=== PATIENT | male | born 1975 | race African-American/Black ===

== ENCOUNTER 2017-02-26 14:00 | Inpatient (IN) ==
[2017-02-26 14:34] LABS: Basophils % 0.1 % (0.0-0.8); Eosinophils # 0.1 10*3/uL (0.0-0.87); Hemoglobin 13.3 GM/DL (14.0-18.0); Immature Granulocytes % 0.1 %; Immature Granulocytes Absolute 0.01 #; Lymphocytes # 2.1 10*3/uL (1.4-4.0); Lymphocytes % 30.8 % (21.2-54.2); Mean Corpuscular HGB Conc 34.1 GM/DL (32-36); Mean Corpuscular Hemoglobin 32 PG (27-34); Mean Corpuscular Volume 93.1 FL (87-102); Mean Platelet Volume 10.8 FL (9.6-12.0); Monocytes # 0.3 10*3/uL (0.11-0.8); Neutrophils # 4.3 10*3/uL (1.4-7.4); Platelet Count 274 T/CUMM (130-400); Red Blood Count 4.19 MC/CUMM (3.8-5.5); Red Cell Distribution Width 13.9 % (9.3-17.3); White Blood Count 6.7 T/CUMM (4-12)
[2017-02-26] MEDS ORDERED: LABETALOL 20 MG/4 ML SYRINGE IV STA (14:37)
[2017-02-26] MEDS ORDERED: LABETALOL 20 MG/4 ML SYRINGE IV ONE (14:39)
[2017-02-26 14:42] LABS: INR 1.1; PT Patient Result 11.6 SECS
[2017-02-26 14:58] LABS: Apearance,Urine CLEAR (Clear); Bacteria,Urine Occasional /HPF (Few); Bilirubin,Urine Negative (Negative); Blood, Urine Negative (Negative); Glucose,Urine (UA) Negative (Negative); Ketones,Urine Negative (Negative); Mucus,Urine Occasional /LPF (Occasional); Nitrite,Urine Negative (Negative); Protein,Urine 30 MG/DL; RBC,Urine <1 /HPF (0-4); Squamous Epithelial Cell,Urine Occasional /HPF (0-10); Urine Color Yellow (Yellow); Urine Specific Gravity 1.013 (1.001-1.035); Urine Urobilinogen < 2.0 EU/DL (0.2-1.0); WBC,Urine 1 /HPF (0-6)
[2017-02-26 14:58] LABS: Alanine Aminotransferase 39 U/L (16-61); Albumin 3.5 G/DL (3.4-5.0); Alkaline Phosphatase 83 U/L (45-117); Aspartate Amino Transferase 21 U/L (0-37); Blood Urea Nitrogen 6 MG/DL (7-18); Calcium 8.7 MG/DL (8.5-10.1); Glucose 151 MG/DL (74-106); Osmolality,Calculated 275.7 MOS/KG (273-304); Potassium 3.7 MMOL/L (3.5-5.1); Sodium 138 MMOL/L (136-145); Total Protein 8.6 G/DL (6.4-8.3)
[2017-02-26 15:03] LABS: Barbiturates Screen,Urine Negative (Negative); Benzodiazepines Screen,Urine Negative (Negative); Cannabinoid Screen,Urine Negative (Negative); Opiate Screen,Urine Positive (Negative); Phencyclidine Screen,Urine Negative (Negative)
[2017-02-26] MEDS ORDERED: LORazepam 2 MG/1 ML VIAL IV ONE (16:18)
[2017-02-26] MEDS: LABETALOL 20 MG/4 ML SYRINGE IV PRN ×2 (17:26→23:36)
[2017-02-26 18:20] LABS: Cholesterol 151 MG/DL (50-200); HDL Cholesterol 38 MG/DL (40-60); Risk Ratio 3.97; Triglycerides 84 MG/DL (2-150); Troponin I Only < 0.015 NG/ML (0.00-0.045); VLDL CHOLESTEROL 16.8 MG/DL
[2017-02-26] MEDS ORDERED: ACETAMINOPHEN 650 MG SUPP RECTAL PRN (20:07)
[2017-02-26] MEDS: ASPIRIN 300 MG SUPP RECTAL SCH (20:29)
[2017-02-26] MEDS: traZODone 50 MG TABLET PO SCH ×2 (20:30→22:05)
[2017-02-26] MEDS ORDERED: ENOXAPARIN 40 MG/0.4 ML SYRINGE SUBCUT SCH (21:00)
[2017-02-27] MEDS: ACETAMINOPHEN 325 MG TABLET PO PRN ×3 (02:26→15:36)
[2017-02-27 06:11] LABS: Basophils % 0.2 % (0.0-0.8); Eosinophils # 0.2 10*3/uL (0.0-0.87); Eosinophils % 1.7 % (0.00-10.9); Hematocrit 39.6 VOL% (42.0-52.0); Hemoglobin 13.4 GM/DL (14.0-18.0); Immature Granulocytes % 0.2 %; Immature Granulocytes Absolute 0.02 #; Lymphocytes # 3.2 10*3/uL (1.4-4.0); Lymphocytes % 34.3 % (21.2-54.2); Mean Corpuscular HGB Conc 33.8 GM/DL (32-36); Mean Corpuscular Hemoglobin 32 PG (27-34); Mean Corpuscular Volume 93.2 FL (87-102); Monocytes # 0.8 10*3/uL (0.11-0.8); Monocytes % 8.6 % (1.7-12.7); Neutrophils # 5.1 10*3/uL (1.4-7.4); Platelet Count 285 T/CUMM (130-400); Red Blood Count 4.25 MC/CUMM (3.8-5.5); Red Cell Distribution Width 14.1 % (9.3-17.3); White Blood Count 9.2 T/CUMM (4-12)
[2017-02-27] MEDS: LABETALOL 20 MG/4 ML SYRINGE IV PRN ×2 (09:08→15:35)
[2017-02-27] MEDS: cloNIDine 0.1 MG TABLET PO SCH ×2 (09:08→18:40)
[2017-02-27] MEDS: amLODIPine 10 MG TABLET PO SCH (09:09)
[2017-02-27] MEDS: ASPIRIN 300 MG SUPP RECTAL SCH ×2 (09:09→12:56)
[2017-02-27] MEDS: NIFEdipine 10 MG CAPSULE PO PRN ×3 (10:21→17:11)
[2017-02-27] MEDS ORDERED: guaiFENesin 200 MG/10 ML UDCUP PO PRN (19:30)
[2017-02-27] MEDS: traZODone 50 MG TABLET PO SCH (20:19)
[2017-02-27] MEDS: ATORVASTATIN 10 MG TABLET PO SCH (20:19)
[2017-02-28 06:39] LABS: Basophils % 0.1 % (0.0-0.8); Eosinophils # 0.1 10*3/uL (0.0-0.87); Eosinophils % 1.2 % (0.00-10.9); Hematocrit 39.1 VOL% (42.0-52.0); Hemoglobin 13.1 GM/DL (14.0-18.0); Immature Granulocytes % 0.4 %; Immature Granulocytes Absolute 0.04 #; Lymphocytes % 27.4 % (21.2-54.2); Mean Corpuscular HGB Conc 33.5 GM/DL (32-36); Mean Corpuscular Hemoglobin 31 PG (27-34); Mean Corpuscular Volume 93.1 FL (87-102); Mean Platelet Volume 10.6 FL (9.6-12.0); Monocytes # 1.2 10*3/uL (0.11-0.8); Monocytes % 11.2 % (1.7-12.7); Neutrophils # 6.5 10*3/uL (1.4-7.4); Neutrophils % 59.7 % (38.7-73.9); Platelet Count 303 T/CUMM (130-400); Red Cell Distribution Width 13.9 % (9.3-17.3); White Blood Count 10.8 T/CUMM (4-12)
[2017-02-28 07:17] LABS: Calcium 9.2 MG/DL (8.5-10.1)
[2017-02-28 07:18] LABS: Magnesium 2.1 MG/DL (1.8-2.4); Osmolality,Calculated 266.2 MOS/KG (273-304); Potassium 3.7 MMOL/L (3.5-5.1)
[2017-02-28] MEDS: cloNIDine 0.1 MG TABLET PO SCH ×3 (08:58→20:38)
[2017-02-28] MEDS: amLODIPine 10 MG TABLET PO SCH (08:59)
[2017-02-28] MEDS ORDERED: ONDANSETRON 4 MG/2 ML VIAL IM PRN (11:11)
[2017-02-28] MEDS: ASPIRIN 325 MG TABLET PO SCH (11:37)
[2017-02-28] MEDS: ONDANSETRON 4 MG/2 ML VIAL IV PRN ×2 (11:42→17:25)
[2017-02-28] MEDS ORDERED: BENZONATATE 100 MG CAPSULE PO PRN (19:48)
[2017-02-28] MEDS: ALBUTEROL 2.5 MG/3 ML NEB RESP TX PRN (19:50)
[2017-02-28] MEDS: ASPIRIN 300 MG SUPP RECTAL SCH (20:35)
[2017-02-28] MEDS: ATORVASTATIN 10 MG TABLET PO SCH (20:37)
[2017-02-28] MEDS: ACETAMINOPHEN 325 MG TABLET PO PRN (20:37)
[2017-02-28] MEDS: traZODone 50 MG TABLET PO SCH (20:37)
[2017-02-28] MEDS: LABETALOL 20 MG/4 ML SYRINGE IV PRN (21:30)
[2017-03-01] MEDS: ONDANSETRON 4 MG/2 ML VIAL IV PRN ×2 (03:29→11:46)
[2017-03-01] MEDS: amLODIPine 10 MG TABLET PO SCH (08:51)
[2017-03-01] MEDS: cloNIDine 0.1 MG TABLET PO SCH ×2 (08:51→20:49)
[2017-03-01] MEDS: ASPIRIN 325 MG TABLET PO SCH (08:51)
[2017-03-01] MEDS: NIFEdipine 10 MG CAPSULE PO PRN (14:35)
[2017-03-01] MEDS: ALBUTEROL 2.5 MG/3 ML NEB RESP TX PRN (19:08)
[2017-03-01] MEDS: ATORVASTATIN 10 MG TABLET PO SCH (20:49)
[2017-03-01] MEDS: traZODone 50 MG TABLET PO SCH (20:49)
[2017-03-02] MEDS: amLODIPine 10 MG TABLET PO SCH (08:53)
[2017-03-02] MEDS: cloNIDine 0.1 MG TABLET PO SCH ×2 (08:53→21:12)
[2017-03-02] MEDS: ASPIRIN 325 MG TABLET PO SCH (08:53)
[2017-03-02] MEDS: ALBUTEROL 2.5 MG/3 ML NEB RESP TX PRN (18:07)
[2017-03-02] MEDS: traZODone 50 MG TABLET PO SCH (21:11)
[2017-03-02] MEDS: ATORVASTATIN 10 MG TABLET PO SCH (21:11)
[2017-03-03 07:11] LABS: Basophils % 0.5 % (0.0-0.8); Eosinophils # 0.3 10*3/uL (0.0-0.87); Eosinophils % 4.5 % (0.00-10.9); Hematocrit 40.3 VOL% (42.0-52.0); Hemoglobin 13.6 GM/DL (14.0-18.0); Immature Granulocytes % 0.2 %; Immature Granulocytes Absolute 0.01 #; Lymphocytes # 1.8 10*3/uL (1.4-4.0); Lymphocytes % 30.1 % (21.2-54.2); Mean Corpuscular HGB Conc 33.7 GM/DL (32-36); Mean Corpuscular Hemoglobin 31 PG (27-34); Mean Corpuscular Volume 93.1 FL (87-102); Monocytes # 0.8 10*3/uL (0.11-0.8); Monocytes % 12.5 % (1.7-12.7); Neutrophils # 3.2 10*3/uL (1.4-7.4); Neutrophils % 52.2 % (38.7-73.9); Platelet Count 299 T/CUMM (130-400); Red Blood Count 4.33 MC/CUMM (3.8-5.5); Red Cell Distribution Width 13.2 % (9.3-17.3)
[2017-03-03 07:47] LABS: Magnesium 2.4 MG/DL (1.8-2.4); Osmolality,Calculated 267.1 MOS/KG (273-304); Potassium 3.9 MMOL/L (3.5-5.1)
[2017-03-03] MEDS: ASPIRIN 325 MG TABLET PO SCH (09:57)
[2017-03-03] MEDS: cloNIDine 0.1 MG TABLET PO SCH (09:57)
[2017-03-03] MEDS: amLODIPine 10 MG TABLET PO SCH (09:58)
[2017-03-03 13:50] VITALS: BP 134/95
== END 2017-03-03 15:20 | disposition home or self-care (01) | DRG 65 ==
LOC: EDSEX → EDBD → EDUNIT# → N.ED 14:00 → N.EDINP 14:52 → N.ICU 16:40 → N.2E 02-27 18:06
PROVIDERS: ADMIT Internal Medicine; ATTEND Internal Medicine

== ENCOUNTER 2018-08-12 11:11 | Inpatient (IN) ==
[2018-08-12] MEDS ORDERED: PROMETHAZINE 25 MG/1 ML VIAL IM PRN (11:45)
[2018-08-12] MEDS ORDERED: ONDANSETRON 4 MG/2 ML VIAL IV PRN (11:45)
[2018-08-12] MEDS ORDERED: LACTULOSE 20 GM/30 ML UDCUP PO PRN (11:45)
[2018-08-12] MEDS ORDERED: DICYCLOMINE 10 MG CAPSULE PO PRN (11:47)
[2018-08-12] MEDS ORDERED: cloNIDine 0.1 MG TABLET PO PRN (11:47)
[2018-08-12] MEDS ORDERED: rOPINIRole 1 MG TABLET PO PRN (11:47)
[2018-08-12] MEDS ORDERED: hydrOXYzine HCL 25 MG/1 ML VIAL IM PRN (11:47)
[2018-08-12] MEDS ORDERED: METHOCARBAMOL 750 MG TABLET PO PRN (11:47)
[2018-08-12] MEDS ORDERED: THIAMINE INJ 100 MG, FOLIC ACID INJ 1 MG, MULTIVITAMIN INJ 10 ML in SODIUM CHLORIDE 0.9... IV ONE (11:47)
[2018-08-12 13:04] LABS: Basophils % 0.3 % (0.0-0.8); Eosinophils # 0.2 10*3/uL (0.0-0.87); Eosinophils % 2.8 % (0.00-10.9); Hematocrit 40.8 VOL% (42.0-52.0); Immature Granulocytes % 0.1 %; Immature Granulocytes Absolute 0.01 #; Lymphocytes # 1.5 10*3/uL (1.4-4.0); Lymphocytes % 21.1 % (21.2-54.2); Mean Corpuscular HGB Conc 31.9 GM/DL (32-36); Mean Corpuscular Hemoglobin 30 PG (27-34); Mean Corpuscular Volume 94.2 FL (87-102); Mean Platelet Volume 9.9 FL (9.6-12.0); Monocytes # 0.4 10*3/uL (0.11-0.8); Monocytes % 5.8 % (1.7-12.7); Neutrophils # 4.8 10*3/uL (1.4-7.4); Neutrophils % 69.9 % (38.7-73.9); Platelet Count 291 T/CUMM (130-400); Red Blood Count 4.33 MC/CUMM (3.8-5.5); Red Cell Distribution Width 14.4 % (9.3-17.3); White Blood Count 6.9 T/CUMM (4-12)
[2018-08-12] MEDS ORDERED: ALBUTEROL 2.5 MG/3 ML NEB RESP TX PRN (13:05)
[2018-08-12 13:31] LABS: Albumin 3.6 G/DL (3.4-5.0); Bilirubin,Total 0.6 MG/DL (0.2-1.0); Calcium 8.8 MG/DL (8.5-10.1); Osmolality,Calculated 276.5 MOS/KG (273-304); Potassium 3.2 MMOL/L (3.5-5.1); Total Protein 9.1 G/DL (6.4-8.3)
[2018-08-12] MEDS: amLODIPine 10 MG TABLET PO SCH (13:58)
[2018-08-12] MEDS: BUPRENORPHINE SL TAB 2 MG TABLET SL SCH ×2 (13:58→19:30)
[2018-08-12] MEDS: ENOXAPARIN 40 MG/0.4 ML SYRINGE SUBCUT SCH (13:58)
[2018-08-12] MEDS: cloNIDine 0.1 MG TABLET PO SCH (13:58)
[2018-08-12] MEDS: LISINOPRIL 10 MG TABLET PO SCH (13:58)
[2018-08-12] MEDS: LACTATED RINGERS 1,000 ML IV SCH (13:59)
[2018-08-12 14:23] LABS: Apearance,Urine CLEAR (Clear); Bilirubin,Urine Negative (Negative); Blood, Urine Negative (Negative); Glucose,Urine (UA) Negative (Negative); Ketones,Urine Negative (Negative); Mucus,Urine Occasional /LPF (Occasional); Nitrite,Urine Negative (Negative); Protein,Urine Negative; RBC,Urine 1 /HPF (0-4); Squamous Epithelial Cell,Urine Occasional /HPF (0-10); Urine Color Yellow (Yellow); Urine Specific Gravity 1.016 (1.001-1.035); WBC,Urine 2 /HPF (0-6)
[2018-08-12 14:27] LABS: Barbiturates Screen,Urine Negative (Negative); Benzodiazepines Screen,Urine Negative (Negative); Cannabinoid Screen,Urine Negative (Negative); Opiate Screen,Urine Positive (Negative); Phencyclidine Screen,Urine Negative (Negative)
[2018-08-12] MEDS ORDERED: POTASSIUM CHLORIDE 20 MEQ TABLET PO ONE (14:37)
[2018-08-12] MEDS: hydrALAZINE 20 MG/1 ML VIAL IV PRN (15:18)
[2018-08-12] MEDS: ACETAMINOPHEN 325 MG TABLET PO PRN (19:30)
[2018-08-12] MEDS: HydrOXYzine PAMOATE 25 MG CAPSULE PO PRN (22:48)
[2018-08-13] MEDS: BUPRENORPHINE SL TAB 2 MG TABLET SL SCH ×3 (03:36→20:17)
[2018-08-13] MEDS: ACETAMINOPHEN 325 MG TABLET PO PRN ×2 (08:50→18:36)
[2018-08-13] MEDS: LISINOPRIL 10 MG TABLET PO SCH (08:50)
[2018-08-13] MEDS: PANTOPRAZOLE 40 MG TABLET PO SCH (08:50)
[2018-08-13] MEDS: amLODIPine 10 MG TABLET PO SCH (08:51)
[2018-08-13] MEDS: cloNIDine 0.1 MG TABLET PO SCH (08:51)
[2018-08-13] MEDS: ENOXAPARIN 40 MG/0.4 ML SYRINGE SUBCUT SCH (14:11)
[2018-08-13] MEDS: LACTATED RINGERS 1,000 ML IV SCH (14:14)
[2018-08-13] MEDS: hydrALAZINE 20 MG/1 ML VIAL IV PRN (19:21)
[2018-08-13] MEDS: HydrOXYzine PAMOATE 25 MG CAPSULE PO PRN (22:05)
[2018-08-14] MEDS: BUPRENORPHINE SL TAB 2 MG TABLET SL SCH ×2 (04:23→13:06)
[2018-08-14] MEDS: PANTOPRAZOLE 40 MG TABLET PO SCH (09:07)
[2018-08-14] MEDS: amLODIPine 10 MG TABLET PO SCH (09:07)
[2018-08-14] MEDS: cloNIDine 0.1 MG TABLET PO SCH (09:07)
[2018-08-14] MEDS: LISINOPRIL 10 MG TABLET PO SCH (09:07)
[2018-08-14] MEDS: ENOXAPARIN 40 MG/0.4 ML SYRINGE SUBCUT SCH (13:07)
[2018-08-14] MEDS: ACETAMINOPHEN 325 MG TABLET PO PRN (13:10)
[2018-08-14] MEDS: HydrOXYzine PAMOATE 25 MG CAPSULE PO PRN (23:12)
[2018-08-15] MEDS: ACETAMINOPHEN 325 MG TABLET PO PRN ×4 (00:34→19:16)
[2018-08-15] MEDS: hydrALAZINE 20 MG/1 ML VIAL IV PRN (00:35)
[2018-08-15] MEDS: BUPRENORPHINE SL TAB 2 MG TABLET SL SCH (00:35)
[2018-08-15] MEDS: LISINOPRIL 10 MG TABLET PO SCH ×2 (09:27→20:38)
[2018-08-15] MEDS: amLODIPine 10 MG TABLET PO SCH (09:27)
[2018-08-15] MEDS: PANTOPRAZOLE 40 MG TABLET PO SCH (09:28)
[2018-08-15] MEDS: cloNIDine 0.1 MG TABLET PO SCH ×3 (09:28→20:37)
[2018-08-15] MEDS: ENOXAPARIN 40 MG/0.4 ML SYRINGE SUBCUT SCH (13:57)
[2018-08-15] MEDS: HydrOXYzine PAMOATE 25 MG CAPSULE PO PRN (23:02)
[2018-08-16 05:26] LABS: Osmolality,Calculated 275.7 MOS/KG (273-304); Potassium 3.7 MMOL/L (3.5-5.1)
[2018-08-16 08:44] VITALS: BP 115/81
[2018-08-16] MEDS: LISINOPRIL 10 MG TABLET PO SCH (09:11)
[2018-08-16] MEDS: amLODIPine 10 MG TABLET PO SCH (09:12)
[2018-08-16] MEDS: cloNIDine 0.1 MG TABLET PO SCH ×2 (09:14→15:20)
[2018-08-16] MEDS: PANTOPRAZOLE 40 MG TABLET PO SCH (09:14)
[2018-08-16] MEDS: ENOXAPARIN 40 MG/0.4 ML SYRINGE SUBCUT SCH (13:53)
== END 2018-08-16 15:00 | disposition home or self-care (01) | DRG 772 ==
LOC: N.4E 12:27 → SUATTDRO 12:27
PROVIDERS: ADMIT Internal Medicine; ATTEND Internal Medicine

== ENCOUNTER 2018-09-16 11:32 | Inpatient (IN) ==
[2018-09-16] MEDS ORDERED: hydrOXYzine HCL 25 MG/1 ML VIAL IM PRN (12:32)
[2018-09-16] MEDS ORDERED: HydrOXYzine PAMOATE 25 MG CAPSULE PO PRN (12:32)
[2018-09-16] MEDS ORDERED: METHOCARBAMOL 750 MG TABLET PO PRN (12:32)
[2018-09-16] MEDS ORDERED: cloNIDine 0.1 MG TABLET PO PRN (12:32)
[2018-09-16] MEDS ORDERED: rOPINIRole 1 MG TABLET PO PRN (12:32)
[2018-09-16] MEDS ORDERED: chlordiazePOXIDE 25 MG CAPSULE PO SCH (13:00)
[2018-09-16] MEDS: chlordiazePOXIDE 25 MG CAPSULE PO SCH ×2 (13:13→19:07)
[2018-09-16] MEDS: BUPRENORPHINE SL TAB 2 MG TABLET SL SCH ×2 (13:13→20:18)
[2018-09-16] MEDS: SODIUM CHLORIDE 0.9% 1,000 ML IV SCH (13:14)
[2018-09-16] MEDS: cloNIDine 0.1 MG TABLET PO SCH ×2 (16:07→20:19)
[2018-09-16] MEDS: ALBUTEROL/IPRATROPIUM 3 ML NEB RESP TX PRN (20:24)
[2018-09-17] MEDS: chlordiazePOXIDE 25 MG CAPSULE PO SCH ×4 (01:12→21:20)
[2018-09-17] MEDS: BUPRENORPHINE SL TAB 2 MG TABLET SL SCH ×3 (04:54→21:20)
[2018-09-17] MEDS: SODIUM CHLORIDE 0.9% 1,000 ML IV SCH ×2 (04:55→19:04)
[2018-09-17 05:16] LABS: Basophils % 0.8 % (0.0-0.8); Eosinophils # 0.3 10*3/uL (0.0-0.87); Eosinophils % 5.8 % (0.00-10.9); Hematocrit 35.3 VOL% (42.0-52.0); Hemoglobin 11.1 GM/DL (14.0-18.0); Immature Granulocytes % 0.2 %; Immature Granulocytes Absolute 0.01 #; Lymphocytes # 1.9 10*3/uL (1.4-4.0); Lymphocytes % 39.6 % (21.2-54.2); Mean Corpuscular HGB Conc 31.4 GM/DL (32-36); Mean Corpuscular Volume 94.9 FL (87-102); Mean Platelet Volume 10.1 FL (9.6-12.0); Monocytes % 13.3 % (1.7-12.7); Neutrophils % 40.3 % (38.7-73.9); Platelet Count 241 T/CUMM (130-400); Red Blood Count 3.72 MC/CUMM (3.8-5.5); Red Cell Distribution Width 14.7 % (9.3-17.3); White Blood Count 4.8 T/CUMM (4-12)
[2018-09-17 05:43] LABS: Albumin 3.2 G/DL (3.4-5.0); Bilirubin,Total 0.6 MG/DL (0.2-1.0); Calcium 8.5 MG/DL (8.5-10.1); Risk Ratio 3.45; Thyroid Stimulating Hormone 0.544 uIU/ml (0.358-3.74); VLDL CHOLESTEROL 23.4 MG/DL
[2018-09-17] MEDS: PANTOPRAZOLE 40 MG TABLET PO SCH (09:05)
[2018-09-17] MEDS: cloNIDine 0.1 MG TABLET PO SCH ×3 (09:05→21:20)
[2018-09-17] MEDS: amLODIPine 10 MG TABLET PO SCH (09:05)
[2018-09-17] MEDS: ALBUTEROL/IPRATROPIUM 3 ML NEB RESP TX PRN (10:26)
[2018-09-17] MEDS ORDERED: ACETAMINOPHEN 325 MG TABLET PO PRN (12:59)
[2018-09-17] MEDS: ONDANSETRON 4 MG/2 ML VIAL IV PRN ×2 (14:19→20:05)
[2018-09-17] MEDS ORDERED: POTASSIUM CHLORIDE 20 MEQ TABLET PO ONE (15:44)
[2018-09-18] MEDS: BUPRENORPHINE SL TAB 2 MG TABLET SL SCH ×2 (05:43→13:16)
[2018-09-18] MEDS: chlordiazePOXIDE 25 MG CAPSULE PO SCH ×3 (05:43→20:18)
[2018-09-18] MEDS: ONDANSETRON 4 MG/2 ML VIAL IV PRN ×2 (08:07→20:18)
[2018-09-18] MEDS: cloNIDine 0.1 MG TABLET PO SCH ×3 (08:07→20:20)
[2018-09-18] MEDS: amLODIPine 10 MG TABLET PO SCH (08:07)
[2018-09-18] MEDS: PANTOPRAZOLE 40 MG TABLET PO SCH (08:08)
[2018-09-18] MEDS: SODIUM CHLORIDE 0.9% 1,000 ML IV SCH ×2 (08:09→20:24)
[2018-09-18] MEDS: ALBUTEROL/IPRATROPIUM 3 ML NEB RESP TX PRN (19:43)
[2018-09-18] MEDS: DICYCLOMINE 10 MG CAPSULE PO PRN (20:18)
[2018-09-19] MEDS: BUPRENORPHINE SL TAB 2 MG TABLET SL SCH (01:49)
[2018-09-19] MEDS: chlordiazePOXIDE 25 MG CAPSULE PO SCH (05:08)
[2018-09-19] MEDS: cloNIDine 0.1 MG TABLET PO SCH ×3 (08:21→20:43)
[2018-09-19] MEDS: amLODIPine 10 MG TABLET PO SCH (08:21)
[2018-09-19] MEDS: PANTOPRAZOLE 40 MG TABLET PO SCH (08:21)
[2018-09-19] MEDS: ONDANSETRON 4 MG/2 ML VIAL IV PRN (08:26)
[2018-09-19] MEDS: DICYCLOMINE 10 MG CAPSULE PO PRN (08:27)
[2018-09-19] MEDS ORDERED: PROMETHAZINE INJ 25 MG in SODIUM CHLORIDE 0.9% 50 ML IV PRN (09:23)
[2018-09-19 10:18] LABS: Basophils % 0.1 % (0.0-0.8); Eosinophils # 0.3 10*3/uL (0.0-0.87); Eosinophils % 3.7 % (0.00-10.9); Hematocrit 37.1 VOL% (42.0-52.0); Hemoglobin 11.8 GM/DL (14.0-18.0); Immature Granulocytes % 0.1 %; Immature Granulocytes Absolute 0.01 #; Lymphocytes # 1.9 10*3/uL (1.4-4.0); Lymphocytes % 28.4 % (21.2-54.2); Mean Corpuscular HGB Conc 31.8 GM/DL (32-36); Mean Corpuscular Volume 93.9 FL (87-102); Mean Platelet Volume 10.3 FL (9.6-12.0); Monocytes % 10.9 % (1.7-12.7); Neutrophils % 56.8 % (38.7-73.9); Platelet Count 248 T/CUMM (130-400); Red Blood Count 3.95 MC/CUMM (3.8-5.5); Red Cell Distribution Width 14.8 % (9.3-17.3); White Blood Count 6.8 T/CUMM (4-12)
[2018-09-19] MEDS: SODIUM CHLORIDE 0.9% 1,000 ML IV SCH ×2 (10:36→11:22)
[2018-09-19 10:41] LABS: Calcium 8.4 MG/DL (8.5-10.1); Osmolality,Calculated 279.1 MOS/KG (273-304)
[2018-09-19] MEDS ORDERED: ENOXAPARIN 40 MG/0.4 ML SYRINGE SUBCUT SCH (14:00)
[2018-09-19] MEDS: CIPROFLOXACIN 0.3% OPH SOLN 2.5 ML BOTTLE BOTH EYES SCH ×3 (14:04→22:19)
[2018-09-19] MEDS ORDERED: MAGNESIUM HYDROXIDE SUSP 30 ML UDCUP PO PRN (18:06)
[2018-09-19] MEDS: ALBUTEROL/IPRATROPIUM 3 ML NEB RESP TX PRN (21:15)
[2018-09-20] MEDS: SODIUM CHLORIDE 0.9% 1,000 ML IV SCH (00:15)
[2018-09-20] MEDS: CIPROFLOXACIN 0.3% OPH SOLN 2.5 ML BOTTLE BOTH EYES SCH ×3 (03:33→09:06)
[2018-09-20 04:44] LABS: Eosinophils # 0.3 10*3/uL (0.0-0.87); Eosinophils % 6.9 % (0.00-10.9); Hematocrit 33.4 VOL% (42.0-52.0); Hemoglobin 10.7 GM/DL (14.0-18.0); Immature Granulocytes % 0.2 %; Immature Granulocytes Absolute 0.01 #; Lymphocytes # 1.7 10*3/uL (1.4-4.0); Lymphocytes % 35.9 % (21.2-54.2); Mean Corpuscular Volume 93.8 FL (87-102); Mean Platelet Volume 9.7 FL (9.6-12.0); Monocytes % 14.5 % (1.7-12.7); Neutrophils % 42.5 % (38.7-73.9); Platelet Count 227 T/CUMM (130-400); Red Blood Count 3.56 MC/CUMM (3.8-5.5); Red Cell Distribution Width 14.8 % (9.3-17.3); White Blood Count 4.6 T/CUMM (4-12)
[2018-09-20 05:02] LABS: Calcium 8.1 MG/DL (8.5-10.1)
[2018-09-20] MEDS: PANTOPRAZOLE 40 MG TABLET PO SCH (09:06)
[2018-09-20] MEDS: cloNIDine 0.1 MG TABLET PO SCH (09:06)
[2018-09-20] MEDS: amLODIPine 10 MG TABLET PO SCH (09:06)
[2018-09-20 12:12] VITALS: BP 121/92
== END 2018-09-20 14:22 | disposition home or self-care (01) | DRG 772 ==
LOC: N.4E 11:46
PROVIDERS: ADMIT Internal Medicine; ATTEND Internal Medicine

== ENCOUNTER 2018-10-20 14:35 | Inpatient (IN) ==
[2018-10-20] MEDS ORDERED: ONDANSETRON 4 MG/2 ML VIAL IV PRN (16:11)
[2018-10-20 17:51] LABS: Basophils % 0.6 % (0.0-0.8); Eosinophils # 0.6 10*3/uL (0.0-0.87); Hematocrit 41.7 VOL% (42.0-52.0); Hemoglobin 13.3 GM/DL (14.0-18.0); Immature Granulocytes % 0.2 %; Immature Granulocytes Absolute 0.01 #; Lymphocytes # 2.2 10*3/uL (1.4-4.0); Lymphocytes % 35.2 % (21.2-54.2); Mean Corpuscular HGB Conc 31.9 GM/DL (32-36); Mean Corpuscular Volume 92.3 FL (87-102); Mean Platelet Volume 10.5 FL (9.6-12.0); Monocytes % 11.1 % (1.7-12.7); Neutrophils % 43.9 % (38.7-73.9); Platelet Count 314 T/CUMM (130-400); Red Blood Count 4.52 MC/CUMM (3.8-5.5); Red Cell Distribution Width 14.3 % (9.3-17.3); White Blood Count 6.2 T/CUMM (4-12)
[2018-10-20] MEDS: chlordiazePOXIDE 25 MG CAPSULE PO SCH ×2 (17:58→21:30)
[2018-10-20] MEDS: SODIUM CHLORIDE 0.9% 1,000 ML IV SCH (17:58)
[2018-10-20 18:13] LABS: Calcium 8.9 MG/DL (8.5-10.1); Osmolality,Calculated 271.7 MOS/KG (273-304)
[2018-10-20] MEDS: HydrOXYzine PAMOATE 25 MG CAPSULE PO PRN (21:29)
[2018-10-20] MEDS: METHOCARBAMOL 750 MG TABLET PO PRN (21:29)
[2018-10-20] MEDS: cloNIDine 0.1 MG TABLET PO PRN (23:26)
[2018-10-21] MEDS: chlordiazePOXIDE 25 MG CAPSULE PO SCH (04:09)
[2018-10-21] MEDS: cloNIDine 0.1 MG TABLET PO PRN ×3 (06:04→16:55)
[2018-10-21] MEDS: SODIUM CHLORIDE 0.9% 1,000 ML IV SCH ×2 (09:18→21:58)
[2018-10-21] MEDS: ENOXAPARIN 40 MG/0.4 ML SYRINGE SUBCUT SCH (09:18)
[2018-10-21] MEDS: BUPRENORPHINE SL TAB 2 MG TABLET SL SCH ×2 (09:19→16:55)
[2018-10-21] MEDS: PANTOPRAZOLE 40 MG TABLET PO SCH (09:19)
[2018-10-21] MEDS: METHOCARBAMOL 750 MG TABLET PO PRN (09:19)
[2018-10-21 09:54] LABS: Risk Ratio 3.88; Thyroid Stimulating Hormone 0.398 uIU/ml (0.358-3.74); VLDL CHOLESTEROL 22.2 MG/DL
[2018-10-21 12:52] LABS: Apearance,Urine CLEAR (Clear); Bilirubin,Urine Negative (Negative); Blood, Urine Negative (Negative); Glucose,Urine (UA) Negative (Negative); Ketones,Urine Negative (Negative); Mucus,Urine Occasional /LPF (Occasional); Nitrite,Urine Negative (Negative); Protein,Urine Negative; RBC,Urine <1 /HPF (0-4); Urine Color Yellow (Yellow); Urine Specific Gravity 1.016 (1.001-1.035); Urine Urobilinogen < 2.0 EU/DL (0.2-1.0); WBC,Urine <1 /HPF (0-6)
[2018-10-21] MEDS: amLODIPine 10 MG TABLET PO SCH (14:50)
[2018-10-21] MEDS: ACETAMINOPHEN 325 MG TABLET PO PRN ×2 (16:57→20:50)
[2018-10-21] MEDS: ALBUTEROL 2.5 MG/3 ML NEB RESP TX PRN (17:45)
[2018-10-21] MEDS: HydrOXYzine PAMOATE 25 MG CAPSULE PO PRN (20:49)
[2018-10-22] MEDS: cloNIDine 0.1 MG TABLET PO PRN ×3 (00:06→23:32)
[2018-10-22] MEDS: ACETAMINOPHEN 325 MG TABLET PO PRN ×3 (00:32→19:52)
[2018-10-22] MEDS: BUPRENORPHINE SL TAB 2 MG TABLET SL SCH ×4 (00:32→23:32)
[2018-10-22] MEDS ORDERED: CLINDAMYCIN 300 MG CAPSULE PO ONE (09:00)
[2018-10-22] MEDS: ASPIRIN EC 81 MG TABLET PO SCH (09:40)
[2018-10-22] MEDS: PANTOPRAZOLE 40 MG TABLET PO SCH (09:41)
[2018-10-22] MEDS: amLODIPine 10 MG TABLET PO SCH (09:41)
[2018-10-22] MEDS: ENOXAPARIN 40 MG/0.4 ML SYRINGE SUBCUT SCH (09:41)
[2018-10-22] MEDS: CLINDAMYCIN 300 MG CAPSULE PO SCH ×3 (12:40→20:59)
[2018-10-22] MEDS: SODIUM CHLORIDE 0.9% 1,000 ML IV SCH (12:45)
[2018-10-22] MEDS: ALBUTEROL 2.5 MG/3 ML NEB RESP TX PRN (13:30)
[2018-10-22] MEDS: HydrOXYzine PAMOATE 25 MG CAPSULE PO PRN (20:58)
[2018-10-23 08:31] VITALS: BP 123/82
[2018-10-23] MEDS: amLODIPine 10 MG TABLET PO SCH (08:58)
[2018-10-23] MEDS: BUPRENORPHINE SL TAB 2 MG TABLET SL SCH (08:58)
[2018-10-23] MEDS: PANTOPRAZOLE 40 MG TABLET PO SCH (08:58)
[2018-10-23] MEDS: ASPIRIN EC 81 MG TABLET PO SCH (08:58)
[2018-10-23] MEDS: CLINDAMYCIN 300 MG CAPSULE PO SCH (08:58)
[2018-10-23] MEDS: ENOXAPARIN 40 MG/0.4 ML SYRINGE SUBCUT SCH (08:59)
== END 2018-10-23 09:56 | DRG 772 ==
LOC: N.4E 15:00
PROVIDERS: ADMIT Internal Medicine; ATTEND Internal Medicine

== ENCOUNTER 2019-06-21 18:26 | Observation (INO) ==
[2019-06-21] MEDS ORDERED: NITROGLYCERIN SL 0.4 MG TABLET SL PRN (19:01)
[2019-06-21] MEDS ORDERED: ASPIRIN 325 MG TABLET PO STA (19:01)
[2019-06-21 19:06] LABS: Basophils # 0.1 10*3/uL (0.0-0.2); Basophils % 0.9 % (0.0-0.8); Eosinophils # 0.6 10*3/uL (0.0-0.87); Eosinophils % 8.5 % (0.00-10.9); Hematocrit 44.9 VOL% (42.0-52.0); Hemoglobin 14.5 GM/DL (14.0-18.0); Immature Granulocytes % 0.1 %; Immature Granulocytes Absolute 0.01 #; Lymphocytes # 2.6 10*3/uL (1.4-4.0); Lymphocytes % 36.3 % (21.2-54.2); Mean Corpuscular HGB Conc 32.3 GM/DL (32-36); Mean Corpuscular Volume 91.8 FL (87-102); Mean Platelet Volume 9.6 FL (9.6-12.0); Monocytes % 13.2 % (1.7-12.7); Platelet Count 298 T/CUMM (130-400); Red Blood Count 4.89 MC/CUMM (3.8-5.5); Red Cell Distribution Width 13.1 % (9.3-17.3); White Blood Count 7.1 T/CUMM (4-12)
[2019-06-21 19:25] LABS: Calcium 9.4 MG/DL (8.5-10.1); Osmolality,Calculated 262.4 MOS/KG (273-304)
[2019-06-21] MEDS ORDERED: POTASSIUM CHLORIDE 20 MEQ TABLET PO STA (19:29)
[2019-06-21] MEDS ORDERED: ALBUTEROL/IPRATROPIUM 3 ML NEB RESP TX STA (20:33)
[2019-06-21] MEDS ORDERED: MAGNESIUM SULF RIDER 4 GM in PREMIX 1 EACH IV PRN (20:44)
[2019-06-21] MEDS ORDERED: MAGNESIUM SULF RIDER 2 GM in PREMIX 1 EACH IV PRN (20:44)
[2019-06-21] MEDS ORDERED: ONDANSETRON 4 MG/2 ML VIAL IV PRN (20:47)
[2019-06-21] MEDS ORDERED: ACETAMINOPHEN 325 MG TABLET PO PRN (20:47)
[2019-06-21] MEDS ORDERED: hydrALAZINE 20 MG/1 ML VIAL IV PRN (20:47)
[2019-06-21] MEDS ORDERED: DOCUSATE SODIUM 100 MG CAPSULE PO PRN (20:47)
[2019-06-21] MEDS ORDERED: MORPHINE 4 MG/1 ML VIAL IV PRN (21:15)
[2019-06-21] MEDS ORDERED: NON-FORMULARY MEDICATION (Albuterol Sulfate [Ventolin Hfa] 2 PUFF) INH PRN (22:10)
[2019-06-21] MEDS ORDERED: traZODone 50 MG TABLET PO SCH (22:30)
[2019-06-21] MEDS ORDERED: ALBUTEROL 2.5 MG/3 ML NEB RESP TX PRN (23:00)
[2019-06-21] MEDS: carvediloL 25 MG TABLET PO SCH (23:06)
[2019-06-22 05:48] LABS: Basophils # 0.1 10*3/uL (0.0-0.2); Basophils % 0.9 % (0.0-0.8); Eosinophils # 0.5 10*3/uL (0.0-0.87); Hematocrit 42.2 VOL% (42.0-52.0); Immature Granulocytes % 0.1 %; Immature Granulocytes Absolute 0.01 #; Lymphocytes # 2.3 10*3/uL (1.4-4.0); Lymphocytes % 33.6 % (21.2-54.2); Mean Corpuscular HGB Conc 33.2 GM/DL (32-36); Mean Corpuscular Volume 91.9 FL (87-102); Mean Platelet Volume 9.9 FL (9.6-12.0); Monocytes % 12.4 % (1.7-12.7); Platelet Count 275 T/CUMM (130-400); Red Blood Count 4.59 MC/CUMM (3.8-5.5); Red Cell Distribution Width 13.3 % (9.3-17.3); White Blood Count 6.8 T/CUMM (4-12)
[2019-06-22 06:05] LABS: Calcium 9.5 MG/DL (8.5-10.1); Osmolality,Calculated 265.2 MOS/KG (273-304)
[2019-06-22] MEDS: POTASSIUM CHLORIDE 20 MEQ TABLET PO PRN ×3 (06:14→13:19)
[2019-06-22 06:15] LABS: Risk Ratio 3.97; Thyroid Stimulating Hormone 0.436 uIU/ml (0.358-3.74); VLDL CHOLESTEROL 16.2 MG/DL
[2019-06-22] MEDS ORDERED: ENOXAPARIN 40 MG/0.4 ML SYRINGE SUBCUT SCH (09:00)
[2019-06-22] MEDS ORDERED: ASPIRIN EC 81 MG TABLET PO SCH (09:00)
[2019-06-22] MEDS ORDERED: amLODIPine 10 MG TABLET PO SCH (09:00)
[2019-06-22] MEDS ORDERED: hydroCHLOROthiazide 25 MG TABLET PO SCH (09:00)
[2019-06-22] MEDS: carvediloL 25 MG TABLET PO SCH ×2 (09:35→17:42)
[2019-06-22 11:55] LABS: Barbiturates Screen,Urine Negative (Negative); Benzodiazepines Screen,Urine Negative (Negative); Cannabinoid Screen,Urine Negative (Negative); Opiate Screen,Urine Positive (Negative); Phencyclidine Screen,Urine Negative (Negative)
[2019-06-22 16:57] VITALS: BP 109/82
[2019-06-22] MEDS ORDERED: ATORVASTATIN 20 MG TABLET PO SCH (21:00)
== END 2019-06-22 17:40 | disposition home or self-care (01) ==
LOC: N.ED 18:26 → N.EDINP 18:26 → N.5E 20:50 → N.2W 06-22 11:58
PROVIDERS: ADMIT Family Medicine; ATTEND Family Medicine